=== PATIENT | male | born 1940 | race African-American/Black ===

== ENCOUNTER 2020-01-09 09:21 | Inpatient (IN) | payer OTHER ==
[2020-01-09 09:47] VITALS: BMI 22.8
--- NOTE | 2020-01-09 10:33 | PDOC ---
History of Present Illness - General Chief Complaint: Altered Mental Status Stated Complaint: AMS Time Seen by Provider: 01/09/20 10:15 History Source: Patient, EMS, Family Exam Limitations: Clinical Condition (disorientation) - History of Present Illness Initial Comments: 01/09/20 10:30 79M PMH MM, HTN, gluacoma BIBEMS for altered mental status after being found by PD wandering the street. Patient believes he is still in [place]. Denies recent illness, chest pain, sob. Unreliable historian. Collateral obtained from son - pt frequently visits [place] and was driving back home ([place]), ended up in [place]. Pt had called at 3am but did not believe it was 3am and was confused. No prior hx of altered mental status. No hx etoh, drug abuse. pmd [facility] Past History - Medical History Allergies/Adverse Reactions: Allergies Allergy/AdvReac Type Severity Reaction Status Date / Time No Known Allergies Allergy Verified 01/09/20 09:38 Home Medications: Ambulatory Orders Unobtainable 01/09/20 COPD: No HTN: Yes - Psycho-Social/Smoking History Smoking History: Never smoked - Substance Abuse Hx (Audit-C & DAST Scrn) How often the patient has a drink containing alcohol: Never Score: In Men: 4 or > Positive; In Women: 3 or > Positive: 0 Screen Result (Pos requires Nsg. Audit-10AR): Negative Review of Systems - Review of Systems Able to Perform ROS?: No Comments:: 01/09/20 17:55 Limited 2/2 AMS Denies f/c, cp/sob *Physical Exam - Vital Signs Last Vital Signs Temp Pulse Resp BP Pulse Ox 97.7 F 79 20 151/75 99 01/09/20 09:38 01/09/20 09:38 01/09/20 09:38 01/09/20 09:38 01/09/20 09:38 - Physical Exam 01/09/20 17:55 GEN: NAD, comfortable. AAOx2 to person and date; believes he is in [place] despite frequent re-orientation HEENT: NC/AT, EOMI, PERRL. No facial asymmetry. Normal voice. Supple neck w/ FROM. CV: S1/S2, RRR, no m/r/g LUNG: CTAB, no wheezes, crackles, rales, rhonchi. GI: Soft, ndnt, +BS, no guarding, no rebound MSK: No obvious deformities of all extremities. SKIN: Warm, dry, no rashes appreciated. PSYCH: Limited insight, disoriented, cooperative. Speaking fluently. NEURO: Moving all extremities ED Treatment Course - LABORATORY CBC & Chemistry Diagram: 01/10/20 06:34 01/10/20 06:34 - ADDITIONAL ORDERS Additional order review: Laboratory Results 01/09/20 09:43 POC Glucometer 107 01/09/20 09:43 POC Glucometer 107 Medical Decision Making - Medical Decision Making 01/09/20 17:55 79M w/ MM BIBEMS for AMS. Found on wandering by PD. Was on his way to [place] from [place]. Believes he is in [place] still. AMS w/u, labs, urine, CT Head Admit 01/09/20 15:03 labs reviewed CTX for UTI CT head negative elevated trop to 0.33 EKG 10:53 HR 63 intervals wnl, sinus. PACs, no TWIs, isolated submm HUSSEIN V2. dw Dr. Webber; trend trops 01/09/20 15:40 endorsed / admitted Discharge - Discharge Information Problems reviewed: Yes Clinical Impression/Diagnosis: UTI (urinary tract infection), AMS (altered mental status) Condition: Stable - Admission Yes - Follow up/Referral - Patient Discharge Instructions - Post Discharge Activity
[2020-01-09 10:42] LABS: HEMATOCRIT 38.4 % (35.4-49); HEMOGLOBIN 13.1 GM/dL (11.7-16.9); LYMPH % 19.6 % (8-40); MCH 33.2 pg (25.7-33.7); MEAN CELL VOLUME 97.6 fl (80-96); MONO % 15.5 % (3.8-10.2); NEUT % 62.9 % (42.8-82.8); PLATELET COUNT 130 K/MM3 (134-434); RBC 3.94 M/mm3 (4.00-5.60); RDW 13.8 % (11.9-15.9); VENOUS BASE EXCESS 0.3 mmol/L (-2-2); VENOUS O2 SATURATION 56.7 % (70-80); VENOUS PCO2 50.7 mmHg (38-52); VENOUS PH 7.342 (7.310-7.410); WHITE BLOOD COUNT 3.9 K/mm3 (4.0-10.0)
[2020-01-09 11:18] LABS: ALBUMIN 3.4 g/dl (3.4-5.0); BILIRUBIN,TOTAL 0.6 mg/dL (0.2-1); BLOOD UREA NITROGEN 14.5 mg/dL (7-18); POTASSIUM 3.6 mmol/L (3.5-5.1); TOT PROT 7.2 g/dl (6.4-8.2)
[2020-01-09 11:36] LABS: COCAINE, UR NEGATIVE ng/ml (CUTOFF=300); OPIATES, URI NEGATIVE ng/ml (CUTOFF=300); PHENCYCLIDINE,URINE NEGATIVE ng/ml (CUTOFF=25); URINE AMPHETAMINES NEGATIVE ng/ml (CUTOFF=500); URINE BARBITURATES NEGATIVE ng/ml (CUTOFF=200); URINE BENZODIAZEPINES NEGATIVE ng/ml (CUTOFF=200)
[2020-01-09 11:42] LABS: METHADONE, UR NEGATIVE ng/ml (CUTOFF=300)
[2020-01-09 11:54] LABS: CALCIUM 8.3 mg/dL (8.5-10.1)
[2020-01-09 12:31] LABS: EPI CELLS 3 /uL (0-25.1); HYALINE CASTS 2 /uL (0-3.1); PH,URINE 6.5 (5.0-8.0); URINE APPEARANCE TURBID; URINE BACTERIA >9,000 /uL (0-1359); URINE BILIRUBIN NEGATIVE (NEGATIVE); URINE COLOR YELLOW; URINE GLUCOSE (UA) NEGATIVE (NEGATIVE); URINE KETONE NEGATIVE (NEGATIVE); URINE LEUK ESTERASE 3+ (NEGATIVE); URINE NITRITE NEGATIVE (NEGATIVE); URINE PROTEIN 2+ (NEGATIVE); URINE RBC 54 /uL (0-23.9); URINE WBC 4127 /uL (0-25.8)
[2020-01-09] MEDS ORDERED: CEFTRIAXONE 1 GM in DEXTROSE 5%-WATER - 50 ML IVPB ONE (12:58)
[2020-01-09] MEDS ORDERED: CEFTRIAXONE 1 GM/50 ML BAG ONE (13:02)
--- NOTE | 2020-01-09 14:21 | PDOC ---
Documentation entered by Mindy Go SCRIBE, acting as scribe for Félix Cintron MD. Félix Cintron MD: This documentation has been prepared by the scribe, Mindy Go SCRIBE, under my direction and personally reviewed by me in its entirety. I confirm that the documentation accurately reflects all work, treatment, procedures, and medical decision making performed by me. Attending Attestation - Resident Resident Name: Colin Che - ED Attending Attestation I have performed the following: I have examined & evaluated the patient, The case was reviewed & discussed with the resident, I agree w/resident's findings & plan, Exceptions are as noted - HPI HPI: 01/09/20 10:15 Patient is an 79 year old male with a significant past medical history of multiple myeloma, who presents to the ED, IJEOMA, with altered mental status since an unspecified amount of time. Per EMS, police found patient walking in and out of his car and assumed he was intoxicated so they called EMS. Patient believes he is currently in [place] and was rambling about his car and driving to [place]. Police were able to tract down patient's son who is now at bedside. Per patient's son, patient has no history of mental illness, drug use, or alcohol ad diction but that lately patient has been drinking more than usual. Son also commented on the fact that patient has a history of hording and recent pressured speech appearance where patient does not make any sense. Patient denies: any other related symptoms. Allergies: NKDA - Physicial Exam PE: 01/09/20 10:36 GENERAL: The patient is awake, alert, oriented x 1, Nontoxic - in no acute distress. HEAD: Normocephalic, atraumatic. EYES: extraocular movements intact, sclera anicteric, conjunctiva clear. ENT: Normal voice, Moist mucous membranes. NECK: Normal range of motion, supple LUNGS: Breath sounds equal, clear to auscultation bilaterally. No wheezes, no rhonchi, no rales. HEART: Regular rate and rhythm, normal S1 and S2 without murmur, rub or gallop. ABDOMEN: Soft, nontender, No guarding, no rebound. No CVA tenderness EXTREMITIES: Normal range of motion, no edema. NEUROLOGICAL: No facial assymetry, pressured speech, moving all4 extremities spontaneously and symmetrically PSYCH: pressured speech SKIN: Warm, Dry, normal turgor, - Medical Decision Making 01/09/20 10:40 will look for organic disease, metabolic derangement, bran mass if neg paddy consider psych consultation 01/09/20 14:21 UA conssitent with UTI trop elevated to .33, no signs of MN on ekg will admit for further management of AMS/UTI Heart Score/ECG Review - ECG Impressions Comment:: 01/09/20 14:29 Twelve-lead EKG was performed and reviewed by me. There is normal sinus rhythm with a normal rate. Rate of 63 The axis is normal. Q waves in the inferior leads, Q waves in the anterior leads No prior EKG for comparison Discharge - Discharge Information Problems reviewed: Yes Clinical Impression/Diagnosis: UTI (urinary tract infection) Qualifiers: Urinary tract infection type: site unspecified Hematuria presence: with hematuria Qualified Code(s): N39.0 - Urinary tract infection, site not specified ; R31.9 - Hematuria, unspecified AMS (altered mental status) Qualifiers: Altered mental status type: unspecified Qualified Code(s): R41.82 - Altered mental status, unspecified Condition: Guarded - Follow up/Referral - Patient Discharge Instructions - Post Discharge Activity
[2020-01-09] MEDS ORDERED: ASPIRIN 81 MG CHEWABLE TABLETS PO ONE (14:22)
[2020-01-09] MEDS ORDERED: ASPIRIN 81 MG CHEWABLE TABLETS ONE (14:35)
--- NOTE | 2020-01-09 15:42 | HP ---
CHIEF COMPLAINT: AMS PCP: [facility] HISTORY OF PRESENT ILLNESS: 79 yo m w/ PMH HTN, Glaucoma who was BIBEMS after being found by PD wandering the streets. Patient A&O x2 history is limited and was acquired from the patient's son, a nurse. Patient was fully functional and able to do all ADLs until this AM. Patient regularly drives back and forth from [place] and was on his way to his home in [place] and ended up in [place]. Patient is unsure of how he ended up here and believes he is in [place]. Patient's son endorses some mild episodes of hyperactivity and pressured speech in the past but states that the patient has never been altered. In the ED, CT head in WNL, labs WNL, afebrile. UA positive for UTI. Utox negative. Patient found to have elevated troponins. Cardio contacted, no acute interventions. will trend trop. On evaluation, patient is A&O x2. He is aware of his name, the date and the president, but states that he is in his mother's living room in [place]. After minor reorientation, patient states that he knows he is in [place] and does not know why he thought he was in [place]. He is able to recall talking to his son and states that his son told him he was in [place]. Recent Travel: see HPI PAST MEDICAL HISTORY: see HPI PAST SURGICAL HISTORY: see HPI Social History: unable to obtain secondary to AMS Allergies No Known Allergies Allergy (Verified 01/09/20 09:38) HOME MEDICATIONS: Home Medications Medication Instructions Recorded Unobtainable 01/09/20 REVIEW OF SYSTEMS negative except for HPI PHYSICAL EXAMINATION Vital Signs - 24 hr 01/09/20 01/09/20 01/09/20 09:38 10:30 12:40 Temperature 97.7 F Pulse Rate 79 Pulse Rate [ 73 63 Left Apical] Respiratory 20 18 20 Rate Blood Pressure 151/75 Blood Pressure 166/83 121/63 [Right Arm] O2 Sat by Pulse 99 100 100 Oximetry (%) 01/09/20 12:52 Temperature Pulse Rate Pulse Rate [ Left Apical] Respiratory Rate Blood Pressure Blood Pressure [Right Arm] O2 Sat by Pulse 998 H Oximetry (%) GENERAL: Patient asleep, difficult to arouse, but conversant. HEAD: Normal with no signs of trauma. EYES: Pupils equal, round and reactive to light, extraocular movements intact, sclera anicteric, conjunctiva clear. No lid lag. LUNGS: Breath sounds equal, clear to auscultation bilaterally. No wheezes, and no crackles. No accessory muscle use. HEART: Regular rate and rhythm, normal S1 and S2 without murmur, rub or gallop. ABDOMEN: Soft, nontender, not distended, normoactive bowel sounds, no guarding, no rebound, no masses. No hepatomegaly or splenomegaly. Strong smelling urine noted LOWER EXTREMITIES: 2+ pulses, warm, well-perfused. No calf tenderness. No peripheral edema. NEUROLOGICAL: Cranial nerves II-X intact. Normal speech. PSYCHIATRIC: Cooperative. Patient keeps his eyes closed. Patient has circular speech and tangential thought processes. Easily redirectable and answers questions appropriately. SKIN: Warm, dry, normal turgor, no rashes or lesions noted, normal capillary refill. Laboratory Results - last 24 hr 01/09/20 01/09/20 01/09/20 09:32 09:32 09:32 WBC 3.9 L RBC 3.94 L Hgb 13.1 Hct 38.4 MCV 97.6 H MCH 33.2 MCHC 34.0 RDW 13.8 Plt Count 130 L MPV 8.0 Absolute Neuts (auto) 2.5 Neutrophils % 62.9 Lymphocytes % 19.6 Monocytes % 15.5 H Eosinophils % 1.0 Basophils % 1.0 Nucleated RBC % 0 VBG pH POC VBG pCO2 POC VBG pO2 VBG HCO3 VBG O2 Sat (Sascha) VBG Base Excess Sodium 144 Potassium 3.6 Chloride 110 H Carbon Dioxide 32 Anion Gap 2 L BUN 14.5 Creatinine 1.0 Est GFR (CKD-EPI)AfAm 82.02 Est GFR (CKD-EPI)NonAf 70.77 POC Glucometer Random Glucose 110 H Lactic Acid Calcium 8.3 L Total Bilirubin 0.6 AST 20 ALT 27 Alkaline Phosphatase 65 Ammonia 28.70 Creatine Kinase 222 Creatine Kinase Index 1.5 CK-MB (CK-2) 3.5 Troponin I 0.33 H Total Protein 7.2 Albumin 3.4 TSH 1.63 Urine Color Urine Appearance Urine pH Ur Specific Mckenney Urine Protein Urine Glucose (UA) Urine Ketones Urine Blood Urine Nitrite Urine Bilirubin Urine Urobilinogen Ur Leukocyte Esterase Urine WBC (Auto) Urine RBC (Auto) Urine Casts (Auto) U Epithel Cells (Auto) Urine Bacteria (Auto) Opiates Screen Methadone Screen Barbiturate Screen Phencyclidine Screen Ur Amphetamines Screen MDMA (Ecstasy) Screen Benzodiazepines Screen Cocaine Screen U Marijuana (THC) Screen Blood Type Antibody Screen 01/09/20 01/09/20 01/09/20 09:32 09:32 09:32 WBC RBC Hgb Hct MCV MCH MCHC RDW Plt Count MPV Absolute Neuts (auto) Neutrophils % Lymphocytes % Monocytes % Eosinophils % Basophils % Nucleated RBC % VBG pH 7.342 POC VBG pCO2 50.7 POC VBG pO2 31.8 VBG HCO3 26.9 VBG O2 Sat (Sascha) 56.7 L VBG Base Excess 0.3 Sodium Potassium Chloride Carbon Dioxide Anion Gap BUN Creatinine Est GFR (CKD-EPI)AfAm Est GFR (CKD-EPI)NonAf POC Glucometer Random Glucose Lactic Acid 0.9 Calcium Total Bilirubin AST ALT Alkaline Phosphatase Ammonia Creatine Kinase Creatine Kinase Index CK-MB (CK-2) Troponin I Total Protein Albumin TSH Urine Color Urine Appearance Urine pH Ur Specific Mckenney Urine Protein Urine Glucose (UA) Urine Ketones Urine Blood Urine Nitrite Urine Bilirubin Urine Urobilinogen Ur Leukocyte Esterase Urine WBC (Auto) Urine RBC (Auto) Urine Casts (Auto) U Epithel Cells (Auto) Urine Bacteria (Auto) Opiates Screen Methadone Screen Barbiturate Screen Phencyclidine Screen Ur Amphetamines Screen MDMA (Ecstasy) Screen Benzodiazepines Screen Cocaine Screen U Marijuana (THC) Screen Blood Type O POSITIVE Antibody Screen Negative 01/09/20 01/09/20 01/09/20 09:43 10:00 10:00 WBC RBC Hgb Hct MCV MCH MCHC RDW Plt Count MPV Absolute Neuts (auto) Neutrophils % Lymphocytes % Monocytes % Eosinophils % Basophils % Nucleated RBC % VBG pH POC VBG pCO2 POC VBG pO2 VBG HCO3 VBG O2 Sat (Sascha) VBG Base Excess Sodium Potassium Chloride Carbon Dioxide Anion Gap BUN Creatinine Est GFR (CKD-EPI)AfAm Est GFR (CKD-EPI)NonAf POC Glucometer 107 Random Glucose Lactic Acid Calcium Total Bilirubin AST ALT Alkaline Phosphatase Ammonia Creatine Kinase Creatine Kinase Index CK-MB (CK-2) Troponin I Total Protein Albumin TSH Urine Color Yellow Urine Appearance Turbid Urine pH 6.5 Ur Specific Mckenney 1.017 Urine Protein 2+ H Urine Glucose (UA) Negative Urine Ketones Negative Urine Blood Trace Urine Nitrite Negative Urine Bilirubin Negative Urine Urobilinogen 1.0 Ur Leukocyte Esterase 3+ H Urine WBC (Auto) 4127 Urine RBC (Auto) 54 Urine Casts (Auto) 2 U Epithel Cells (Auto) 3 Urine Bacteria (Auto) >9,000 Opiates Screen Negative Methadone Screen Negative Barbiturate Screen Negative Phencyclidine Screen Negative Ur Amphetamines Screen Negative MDMA (Ecstasy) Screen Negative Benzodiazepines Screen Negative Cocaine Screen Negative U Marijuana (THC) Screen Negative Blood Type Antibody Screen ASSESSMENT/PLAN: 79 yo m w/ PMH HTN, Glaucoma who was BIBEMS after being found by PD wandering the streets. Found to have AMS, troponemia and a UTI and is admitted for treatment. #AMS likely 2/2 UTI; underlying psych cause not ruled out -Fluids; will be cautious given age -s/p ceftriaxone in ED, will continue -will wait to see if ABX improve mentation before psych consult #Troponemia; unlikely ACS, but must rule out -elevted in ED, will trend -cardio consulted by ED: Dr. Webber -sub millimeter ST elevation in V1 only; unlikely to be any acute ischemia -monitor on tele Family Medical History Family History: Unable to Obtain (Patient altered) Visit type - Medication Review Med list reviewed for High Risk Meds patients 65 and older: Yes - Emergency Visit Emergency Visit: Yes ED Registration Date: 01/09/20 Care time: The patient presented to the Emergency Department on the above date and was hospitalized for further evaluation of their emergent condition. - New Patient This patient is new to me today: Yes Date on this admission: 01/09/20 - Critical Care Critical Care patient: No
[2020-01-09] MEDS ORDERED: SODIUM CHLORIDE 1,000 ML IV SCH (16:30)
[2020-01-10 06:59] LABS: BASO % 0.2 % (0-2.0); EOS % 0.5 % (0-4.5); HEMATOCRIT 37.9 % (35.4-49); HEMOGLOBIN 12.8 GM/dL (11.7-16.9); LYMPH % 7.4 % (8-40); MCH 32.4 pg (25.7-33.7); MCHC 33.8 g/dl (32.0-35.9); MEAN CELL VOLUME 95.7 fl (80-96); MONO % 9.4 % (3.8-10.2); NEUT % 82.5 % (42.8-82.8); PLATELET COUNT 125 K/MM3 (134-434); RBC 3.96 M/mm3 (4.00-5.60); RDW 13.4 % (11.9-15.9); WHITE BLOOD COUNT 7.9 K/mm3 (4.0-10.0)
[2020-01-10 07:32] LABS: BILIRUBIN,TOTAL 0.7 mg/dL (0.2-1); BLOOD UREA NITROGEN 15.6 mg/dL (7-18); CALCIUM 8.3 mg/dL (8.5-10.1); CREATININE 0.8 mg/dL (0.55-1.3); PHOSPHOROUS 2.5 mg/dL (2.5-4.9); POTASSIUM 3.6 mmol/L (3.5-5.1); TOT PROT 6.7 g/dl (6.4-8.2)
--- NOTE | 2020-01-10 07:58 | PN ---
Teaching Attending Note Name of Resident: Faye Acevedo ATTENDING PHYSICIAN STATEMENT I saw and evaluated the patient. I reviewed the resident's note and discussed the case with the resident. I agree with the resident's findings and plan as documented. SUBJECTIVE: Remained afebrile overnight OBJECTIVE: Vital Signs Temperature 97.7 F 01/09/20 09:38 Pulse Rate 105 H 01/10/20 05:56 Respiratory Rate 24 H 01/10/20 05:56 Blood Pressure 132/75 01/10/20 05:56 O2 Sat by Pulse Oximetry (%) 96 01/10/20 05:56 General: Elderly man, comfortable, not in distress HEENT mucous membranes moist, no anemia, no jaundice, PERRLA, no nystagmus Neck: No JVD, supple, no bruit, thyroid palpably normal, normal carotid pulsations. Chest: Nontender, clear to auscultation bilaterally CVS: S1-S2 regular no murmur/gallop/rub Abdomen: Nondistended, soft, bowel sounds present. Extremities: No edema., No Calf tenderness, pulses present MEDICAL APPLIANCE [employer]KER: Labs: CBC, BMP 01/10/20 06:34 01/10/20 06:34 Troponin I: .33 and 0.28 Urine: WBC 4100, culture is pending COVID-19 PCR: Negative Chest x-ray: No acute ST-T changes EKG: Heart rate 63 variable configuration of P wave no acute ST-T changes no previous EKG available for comparison. CT head: No acute changes Chest x-ray: No infiltrates Active Medications Enoxaparin Sodium (Lovenox -) 40 mg SQ DAILY [facility] Ceftriaxone Sodium 1 gm/ (Dextrose) 50 mls @ 100 mls/hr IVPB DAILY ONE Stop: 01/10/20 10:29 Sodium Chloride (Normal Saline -) 1,000 mls @ 42 mls/hr IV ASDIR PATRICIA Stop: 01/10/20 16:19 Last Admin: 01/09/20 16:53 Dose: 42 mls/hr Documented by: ASSESSMENT AND PLAN: 79 years old man a [place] resident of [place] there he lives with his , son is a RN lives in [place], independent still able to drive to [place], to take care of his property, as per son he has history of multiple myeloma in the past now in remission for past 15 years, hypertension, follow-up [facility], yesterday brought in by [place] close patient was found sleeping in his car engine running, patient was very confused and disoriented so brought in by numerous police to ED for evaluation, overnight patient remained confused and disoriented work-up shows UTI, today morning patient is alert oriented able to recall events surrounding this episode as per patient he was coming back from [place] drives 2 days continuously, somehow patient lost his to [place], as per patient he was on [place] call his friend to get directions somehow landed in [place] and he falls to sleep because he did not sleep for past 2 days, denies any chest pain, shortness of breath, palpitation admits dysuria and difficulty in urination for past few months no complaint of fever, cough, altered sensation noticed, no recent change in exercise tolerance PND or orthopnea CBC BMP are normal mild elevation of troponin I, EKG shows possible wandering pacemaker as 3 different configuration of people with heart rate of 63, evaluated by cardiology consult recommended echo and inpatient stress test Impression: 1.Altered mental status can be toxic metabolic anticoagulopathy due to UTI/transient global amnesia: Most likely due to UTI "toxic metabolic encephalopathy with lack of sleep significantly improved we will continue IV hydration, ceftriaxone for UTI, follo w-up urine culture. No additional neurological work-up at present 2. UTI: Possibility of BPH follow-up bladder ultrasound and KUB ultrasound. Continue ceftriaxone 1 g every 24 hours follow-up urine culture Tylenol as needed for fever and chills. 3. Elevated troponin I: No acute ST-T changes, no symptoms will follow cardiology recommendations and follow-up echo and nuclear stress test follow-up Follow-up TSH, lipid level, hemoglobin A1c. 4. Dementia work-up as an outpatient 5. History of multiple myeloma in remission 6. Hypertension resume home medications 7. Mild thrombocytopenia most likely due to multiple myeloma Plan of care discussed with the resident agrees with the plan and evaluation. Please discuss with family before discharge plan.
--- NOTE | 2020-01-10 08:08 | CON.CARD ---
Consult Consult Specialty:: cardio - History of Present Illness Chief Complaint: confusion History of Present Illness: 79 yo male here with confusion. Pt drives back and forth btw home in [place] and home in . was found by police in [place] [address], not fully oriented, confused as to his wheareabouts (thought he was in [place]). normal temp BP mildly elevated sat normal mild thrombocytopenia trop 0.33-->0.28 otherwise unrevealing, incl normal lactate currently: a bit tangential but repeatedly denies at any time recently feeling CP, sob, palpitations, or dizzy/presyncope states he did not sleep in 2-3 days when driving up feels in [place] currently denies CAD or any other CV history Meds: ? - Smoking History Smoking history: Never smoked Home Medications - Allergies Allergies/Adverse Reactions: Allergies Allergy/AdvReac Type Severity Reaction Status Date / Time No Known Allergies Allergy Verified 01/09/20 09:38 - Home Medications Home Medications: Ambulatory Orders Unobtainable 01/09/20 Family Medical History Family History: Denies (no known cmp) Review of Systems - Review of Systems Constitutional: denies: Chills, Fever Eyes: denies: Eye Pain HENT: denies: Nasal Congestion Neck: denies: Stiffness Cardiovascular: denies: Palpitations Respiratory: denies: Orthopnea, PND Gastrointestinal: denies: Diarrhea, Rectal Bleeding Genitourinary: denies: Burning, Hematuria Musculoskeletal: denies: Muscle Pain Integumentary: denies: Rash Neurological: denies: Numbness, Seizure, Syncope Endocrine: denies: Excessive Sweating Hematology/Lymphatic: denies: Excessive Bleeding Vital Signs: Vital Signs Temperature 97.7 F 01/09/20 09:38 Pulse Rate 105 H 01/10/20 05:56 Respiratory Rate 24 H 01/10/20 05:56 Blood Pressure 132/75 01/10/20 05:56 O2 Sat by Pulse Oximetry (%) 96 01/10/20 05:56 Constitutional: Yes: Well Nourished, No Distress Eyes: No: Sclera Icterus HENT: No: Nasal Congestion Neck: No: Decreased ROM Respiratory: Yes: CTA Bilaterally. No: Accessory Muscle Use, Rales, Wheezes Gastrointestinal: Yes: Normal Bowel Sounds. No: Distention, Hepatomegaly, Palpable Mass, Tenderness Cardiovascular: Yes: Regular Rate and Rhythm JVD: No Carotid Bruit: No PMI: Non-Displaced Heart Sounds: Yes: S1, S2. No: Gallop Murmur: Yes: Diastolic Murmur (loud early decr murmur LUSB c/w AI). No: Systolic Murmur Musculoskeletal: Yes: Other (No kyphosis) Extremities: No: Cold, Cool, Cyanosis Edema: No Peripheral Pulses: 2+ Left Carotid, 2+ Right Carotid, 2+ Left Doralis Pedis, 2+ Right Dorsalis Pedis Integumentary: No: Jaundice Neurological: Yes: Alert, Oriented (x3) Psychiatric: No: Agitated - Other Data Labs, Other Data: CBC, BMP 01/10/20 06:34 01/10/20 06:34 Troponin, BNP 01/09/20 01/09/20 09:32 15:30 Troponin I 0.33 H 0.28 H Troponin, BNP 01/09/20 01/09/20 09:32 15:30 Troponin I 0.33 H 0.28 H Assessment/Plan ECG: NSR with APC; + LVH; old IWMI and old AWMI picture--no old. no ST-T abnormality CXR: no chf, effusions CT head: no acute pathology mental confusion: -? etiology -suspect UTI in elderly -no signs of ACS to be causing this atypical presentation elev troponin: -indeterminate range trop, flat trend x 2, not consistent with acute coronary syndrome/plaque rupture -no targeted therapies indicated in this setting -rec pharm MPI for risk stratification (in AM) -rec tele monitoring x 24 hrs AI murmur, LVH on EKG: -given pt not a local resident and f/u compliance is uncertain, rec echo while here to assess AI severity (typical murmur on exam) and LV size/fxn in light of ekg HTN: -bp mildly elevated, ? prior history/med list (pt unreliable to provide at the moment) -observe trend, no meds for now thrombocytopenia: -mild, no prior baseline -per hospitalist
[2020-01-10] MEDS ORDERED: CEFTRIAXONE 1 GM/50 ML BAG ONE (09:29)
[2020-01-10] MEDS ORDERED: ENOXAPARIN NA (PORCINE) 40 MG/0.4 ML DISP.SYRIN SQ ONE (09:29)
[2020-01-10] MEDS: ENOXAPARIN NA (PORCINE) 40 MG/0.4 ML DISP.SYRIN SQ SCH (09:30)
[2020-01-10] MEDS ORDERED: ENOXAPARIN NA (PORCINE) 30 MG/0.3 ML DISP.SYRIN SQ SCH (10:00)
[2020-01-10] MEDS ORDERED: CEFTRIAXONE 1 GM in DEXTROSE 5%-WATER - 50 ML IVPB ONE (10:00)
--- NOTE | 2020-01-10 12:42 | PN ---
Physical Exam: SUBJECTIVE: Patient seen and examined. Pt stated he was returning to his home in [place], [place], from [place]. When he arrived, he had a desire to go visit the city ([place] However, he ended up in [place] in a confused state. He was disoriented to place. Pt subsequently brought in by EMS. Pt complained of urinary hesitancy and has to strain to urinate. Denies urgency or frequency, fevers, chills, changes in taste, changes in smell, shortness of breath, c/p. OBJECTIVE: Vital Signs Period Temp Pulse Resp BP Sys/Worley Pulse Ox Last 24 Hr 99 F 53-105 19-24 116-162/53-99 96-100 GENERAL: Thin, elderly. AAOx3. Tearful. In mild distress. Lying comfortably on bed. HEENT: NCAT, EOMI, moist mucous membranes. CARDIAC: RRR, s1, s2 present. No murmurs. RESPIRATORY: CTA b/l. No wheezes. Abdomen: Soft, nondistended, nontender to palpation. Normoactive bowel sounds. No suprapubic tenderness. MSK: No CVAT EXTREMITIES: warm, well-perfused. No edema. SKIN: warm, dry. CBC, BMP 01/10/20 06:34 01/10/20 06:34 Active Medications Enoxaparin Sodium (Lovenox -) 40 mg SQ DAILY [facility] Last Admin: 01/10/20 09:30 Dose: 40 mg Documented by: Tamsulosin HCl (Flomax -) 0.4 mg PO DAILY@0830 [facility] CXR; 01/09/2020 A single view of the chest reveals a weak inspiration with else and large heart, tortuous aorta and prominent payton. The patient is rotated to the right. There is some prominent markings in the right mid and lower lung field but no sign of a true infiltrate or failure. The angles are sharp. The bones and soft tissues are intact. CT head w/o contrast; 01/09/2020 No acute bleed or mass or fracture. No CT evidence of acute infarct ASSESSMENT/PLAN: 79 year old M with PMH HTN, multiple myeloma and glaucoma presented to the ED wi th AMS. Pt currently admitted for workup for AMS secondary to UTI vs. transient global amnesia. AMS, likely due to UTI vs. transient global amnesia -UA with 2+ protein, trace blood, 3+ Leuk est, WBC >4000 - Cultures -f/u Ucx -c/w ceftriaxone (started 01/08) today is day 2. - c/w IVF -c/w acetaminophen PRN for fevers -Dementia workup as outpatient. May need MRI if symptoms persist. UTI, possibly due to BPH -f/u ultrasound bladder, ultrasound pelvic/bladder - f/u Ucx - c/w tamsulosin 0.4mg qD Elevated troponin - EKG w/o acute ST changes - Cardiology consulted. Recommended echo and nuclear stress test. - flattened trend, not consistent w/ ACS - c/w tele monitoring HTN - c/w home antihypertensives, pending release of medication list from [place] Thrombocytopenia, likely due to h/o multiple myeloma -continue to monitor Plt FEN -no standing fluids - replete lytes as needed - sodium controlled diet Ppx DVT: lovenox Dispo: admit to telemetry Visit type - Emergency Visit Emergency Visit: Yes ED Registration Date: 01/09/20 Care time: The patient presented to the Emergency Department on the above date and was hospitalized for further evaluation of their emergent condition. - New Patient This patient is new to me today: Yes Date on this admission: 01/10/20 - Critical Care Critical Care patient: No - Medication Review Med list reviewed for High Risk Meds patients 65 and older: Yes ATTENDING PHYSICIAN STATEMENT I saw and evaluated the patient. I reviewed the resident's note and discussed the case with the resident. I agree with the resident's findings and plan as documented. SUBJECTIVE: OBJECTIVE: ASSESSMENT AND PLAN:
[2020-01-10] MEDS ORDERED: METOPROLOL TARTRATE 25 MG TABLET (FP) PO ONE (14:43)
[2020-01-11 07:23] LABS: BASO % 0.8 % (0-2.0); HEMATOCRIT 41.2 % (35.4-49); HEMOGLOBIN 13.7 GM/dL (11.7-16.9); LYMPH % 19.7 % (8-40); MCH 31.9 pg (25.7-33.7); MCHC 33.3 g/dl (32.0-35.9); MEAN PLT VOLUME 8.7 fl (7.5-11.1); NEUT % 67.5 % (42.8-82.8); PLATELET COUNT 133 K/MM3 (134-434); RBC 4.29 M/mm3 (4.00-5.60); RDW 13.8 % (11.9-15.9); WHITE BLOOD COUNT 5.7 K/mm3 (4.0-10.0)
[2020-01-11 07:54] LABS: BILIRUBIN,TOTAL 0.9 mg/dL (0.2-1); BLOOD UREA NITROGEN 15.8 mg/dL (7-18); CALCIUM 8.5 mg/dL (8.5-10.1); CREATININE 0.8 mg/dL (0.55-1.3); POTASSIUM 3.5 mmol/L (3.5-5.1); TOT PROT 6.9 g/dl (6.4-8.2)
[2020-01-11] MEDS ORDERED: TAMSULOSIN HCL 0.4 MG CAP PO SCH (08:30)
[2020-01-11] MEDS ORDERED: REGADENOSON 0.4 MG/5 ML PRE-FILLED SYRINGE IVPUSH ONE (09:00)
[2020-01-11] MEDS ORDERED: cefTRIAXone SODIUM 1 GM VIAL ONE (10:11)
[2020-01-11] MEDS ORDERED: DEXTROSE 5%-WATER - 50 ML IVPB ONE (10:11)
--- NOTE | 2020-01-11 11:04 | EKG ---
Test Reason : Blood Pressure : / mmHG Vent. Rate : 063 BPM Atrial Rate : 063 BPM P-R Int : 186 ms QRS Dur : 082 ms QT Int : 418 ms P-R-T Axes : 056 -18 019 degrees QTc Int : 427 ms SINUS RHYTHM WITH PREMATURE ATRIAL COMPLEXES INFERIOR INFARCT , AGE UNDETERMINED ANTERIOR INFARCT , AGE UNDETERMINED POOR R WAVE PROGRESSION ABNORMAL ECG NO PREVIOUS ECGS AVAILABLE Confirmed by RADHA JORDAN MD ([id number]) on 01/11/2020 11:04:17 AM Referred By: Confirmed By:RADHA JORDAN MD
[2020-01-11] MEDS: CEFTRIAXONE 1 GM in DEXTROSE 5%-WATER - 50 ML IVPB SCH (12:01)
[2020-01-11] MEDS: ENOXAPARIN NA (PORCINE) 40 MG/0.4 ML DISP.SYRIN SQ SCH (12:01)
--- NOTE | 2020-01-11 12:10 | ECHO ---
Name: CHALINO HAIR Exam:Adult Echocardiogram Study Date: 01/11/2020 09:33 AM Age: 79 yrs Reason For Study: Abnormal ECG, LVH, AI murmur Height: 74 in Weight: 178 lb BSA: 2.1 m2 MMode/2D Measurements & Calculations RVDd: 3.8 cm Ao root diam: 3.3 cm IVSd: 1.4 cm LA dimension: 4.1 cm LVIDd: 4.7 cm ACS: 2.3 cm LVIDs: 3.2 cm LVPWd: 1.4 cm EDV(Camilo): 99.9 ml LVOT diam: 2.6 cm ESV(Camilo): 40.6 ml LAV (MOD-bp): 106.0 ml TAPSE: 2.8 cm RV S Dipak: 9.3 cm/sec Doppler Measurements & Calculations MV E max dipak: 47.9 cm/sec Ao V2 max: 202.4 cm/sec MV A max dipak: 50.3 cm/sec Ao max P.4 mmHg MV E/A: 0.95 Ao V2 mean: 130.5 cm/sec MV dec time: 0.26 sec Ao mean P.8 mmHg Ao V2 VTI: 34.5 cm MIGUEL(I,D): 4.5 cm2 AI P1/2t: 442.5 msec MIGUEL(V,D): 4.2 cm2 AI max dipak: 501.2 cm/sec LV V1 max P.9 mmHg AI max P.2 mmHg LV V1 mean P.4 mmHg AI dec slope: 331.8 cm/sec2 LV V1 max: 157.7 cm/sec LV V1 mean: 98.3 cm/sec LV V1 VTI: 28.7 cm MR max dipak: 540.5 cm/sec SV(LVOT): 155.8 ml MR max P.8 mmHg TR max dipak: 202.1 cm/sec PA V2 max: 125.2 cm/sec TR max P.5 mmHg PA max P.3 mmHg PA acc slope: 714.1 cm/sec2 PA acc time: 0.11 sec PI end-d dipak: 97.7 cm/sec Med Peak E' Dipak: 3.8 cm/sec Med E/e': 12.6 Lat Peak E' Dipak: 6.2 cm/sec Lat E/e': 7.7 PA pr(Accel): 28.3 mmHg Pulm Sys Dipak: 61.2 cm/sec Pulm Worley Dipak: 50.8 cm/sec Pulm S/D: 1.2 Tech Comments Possible Ao Valve leaflet fenestration. Procedure A complete two-dimensional transthoracic echocardiogram was performed (2D, M-mode, Doppler and color flow Doppler). Left Ventricle The left ventricle is normal in size. There is mild concentric left ventricular hypertrophy. Left pricilla tricular systolic function is normal. Ejection Fraction = 60-65%. No regional wall motion abnormalities noted. Right Ventricle The right ventricle is normal size. The right ventricular systolic function is normal. Atria The left atrium is mildly dilated. Right atrial size is normal. Mitral Valve There is mild mitral valve thickening. Redundant mitral valve leaflet. There is mild to moderate mitr al regurgitation. Tricuspid Valve The tricuspid valve is normal in structure and function. There is mild tricuspid regurgitation. Right ventricular systolic pressure is normal. Aortic Valve There is mild aortic sclerosis.;. Moderate aortic regurgitation. Pulmonic Valve The pulmonic valve is not well visualized. Great Vessels The aortic root is normal size. Mildly dilated ascending thoracic aorta (3.9 cm). Pericardium/Pleura Small pericardial effusion (<1cm). Interpretation Summary The left ventricle is normal in size. There is mild concentric left ventricular hypertrophy. Left ventricular systolic function is normal. No regional wall motion abnormalities noted. Ejection Fraction = 60-65%. The right ventricular systolic function is normal. The left atrium is mildly dilated. Right atrial size is normal. There is mild mitral valve thickening. Redundant mitral valve leaflet There is mild to moderate mitral regurgitation. There is mild tricuspid regurgitation. Right ventricular systolic pressure is normal. There is mild aortic sclerosis. Moderate aortic regurgitation. Mildly dilated ascending thoracic aorta (3.9 cm) Small pericardial effusion (<1cm) Corey Yusuf MD 01/11/2020 12:09 PM
--- NOTE | 2020-01-11 13:52 | PN ---
Progress Note (short form) - Note Progress Note: s: no cp sob palps dizzy Current Medications Generic Name Dose Route Start Last Admin Trade Name Destiny PRN Reason Stop Dose Admin Enoxaparin Sodium 40 mg 01/10/20 10:00 01/11/20 12:01 Lovenox - SQ 40 mg DAILY [facility] Administration Ceftriaxone Sodium 1 gm/ 50 mls @ 200 mls/hr 01/11/20 10:00 01/11/20 12:01 Dextrose IVPB 200 mls/hr DAILY [facility] Administration Protocol Tamsulosin HCl 0.4 mg 01/11/20 08:30 01/11/20 12:01 Flomax - PO 0.4 mg DAILY@0830 [facility] Administration Vital Signs Period Temp Pulse Resp BP Sys/Worley Pulse Ox Last 24 Hr 97.7 F-98.6 F 69-83 18-20 132-172/74-96 94-100 Constitutional: Yes: Well Nourished, No Distress Eyes: No: Sclera Icterus HENT: No: Nasal Congestion Neck: No: Decreased ROM Respiratory: Yes: CTA Bilaterally. No: Accessory Muscle Use, Rales, Wheezes Gastrointestinal: Yes: Normal Bowel Sounds. No: Distention, Hepatomegaly, Palpable Mass, Tenderness Cardiovascular: Yes: Regular Rate and Rhythm JVD: No Carotid Bruit: No PMI: Non-Displaced Heart Sounds: Yes: S1, S2. No: Gallop Murmur: Yes: Diastolic Murmur (loud early decr murmur LUSB c/w AI). No: Systolic Murmur Musculoskeletal: Yes: Other (No kyphosis) Extremities: No: Cold, Cool, Cyanosis Edema: No Peripheral Pulses: 2+ Left Carotid, 2+ Right Carotid, 2+ Left Doralis Pedis, 2+ Right Dorsalis Pedis Integumentary: No: Jaundice Neurological: Yes: Alert, Oriented (x3) Psychiatric: No: Agitated CBC, BMP 01/11/20 06:15 01/11/20 06:15 Assessment/Plan ECG: NSR with APC; + LVH; old IWMI and old AWMI picture--no old. no ST-T abnormality CXR: no chf, effusions CT head: no acute pathology tele: sr, artifact mental confusion: -? etiology -suspect UTI in elderly -no signs of ACS to be causing this atypical presentation elev troponin: -indeterminate range trop, flat trend x 2, not consistent with acute coronary syndrome/plaque rupture -no targeted therapies indicated in this setting -rec pharm MPI for risk stratification (pending) -tele benign AI murmur, LVH on EKG: -given pt not a local resident and f/u compliance is uncertain, rec echo while here to assess AI severity (typical murmur on exam) and LV size/fxn in light of ekg HTN: -bp mildly elevated, ? prior history/med list (pt unreliable to provide at the moment) -observe trend, no meds for now thrombocytopenia: -mild, no prior baseline -per hospitalist
--- NOTE | 2020-01-11 14:39 | PN ---
Physical Exam: SUBJECTIVE: Patient seen and examined. No acute events overnight. OBJECTIVE: Vital Signs Period Temp Pulse Resp BP Sys/Worley Pulse Ox Last 24 Hr 97.7 F-98.6 F 69-83 18-20 132-172/74-96 94-100 GENERAL: Thin, elderly. AAOx3. Lying comfortably on bed. No acute distress. HEENT: NCAT, EOMI, moist mucous membranes. CARDIAC: RRR, s1, s2 present. No murmurs. RESPIRATORY: CTA b/l. No wheezes. Abdomen: Soft, nondistended, nontender to palpation. Normoactive bowel sounds. No suprapubic tenderness. MSK: No CVAT EXTREMITIES: warm, well-perfused. No edema. SKIN: warm, dry. Laboratory Last Values WBC 5.7 K/mm3 (4.0-10.0) 01/11/20 06:15 RBC 4.29 M/mm3 (4.00-5.60) 01/11/20 06:15 Hgb 13.7 GM/dL (11.7-16.9) 01/11/20 06:15 Hct 41.2 % (35.4-49) 01/11/20 06:15 MCV 96.0 fl (80-96) 01/11/20 06:15 MCH 31.9 pg (25.7-33.7) 01/11/20 06:15 MCHC 33.3 g/dl (32.0-35.9) 01/11/20 06:15 RDW 13.8 % (11.9-15.9) 01/11/20 06:15 Plt Count 133 K/MM3 (134-434) L 01/11/20 06:15 MPV 8.7 fl (7.5-11.1) 01/11/20 06:15 Absolute Neuts (auto) 3.8 K/mm3 (1.5-8.0) 01/11/20 06:15 Neutrophils % 67.5 % (42.8-82.8) 01/11/20 06:15 Lymphocytes % 19.7 % (8-40) D 01/11/20 06:15 Monocytes % 10.0 % (3.8-10.2) 01/11/20 06:15 Eosinophils % 2.0 % (0-4.5) D 01/11/20 06:15 Basophils % 0.8 % (0-2.0) D 01/11/20 06:15 Nucleated RBC % 0 % (0-0) 01/11/20 06:15 VBG pH 7.342 (7.310-7.410) 01/09/20 09:32 POC VBG pCO2 50.7 mmHg (38-52) 01/09/20 09:32 POC VBG pO2 31.8 mmHg (28-48) 01/09/20 09:32 VBG HCO3 26.9 mmol/L (23-29) 01/09/20 09:32 VBG O2 Sat (Sascha) 56.7 % (70-80) L 01/09/20 09:32 VBG Base Excess 0.3 mmol/L (-2-2) 01/09/20 09:32 Sodium 141 mmol/L (136-145) 01/11/20 06:15 Potassium 3.5 mmol/L (3.5-5.1) 01/11/20 06:15 Chloride 108 mmol/L (98-107) H 01/11/20 06:15 Carbon Dioxide 28 mmol/L (21-32) 01/11/20 06:15 Anion Gap 5 MMOL/L (8-16) L 01/11/20 06:15 BUN 15.8 mg/dL (7-18) 01/11/20 06:15 Creatinine 0.8 mg/dL (0.55-1.3) 01/11/20 06:15 Est GFR (CKD-EPI)AfAm 97.78 01/11/20 06:15 Est GFR (CKD-EPI)NonAf 84.37 01/11/20 06:15 POC Glucometer 107 UNITS (80-120) 01/09/20 09:43 Random Glucose 89 mg/dL (74-106) 01/11/20 06:15 Hemoglobin A1c % 5.7 % (4.2-6.3) 01/11/20 06:15 Lactic Acid 0.9 mmol/L (0.4-2.0) 01/09/20 09:32 Calcium 8.5 mg/dL (8.5-10.1) 01/11/20 06:15 Phosphorus 2.5 mg/dL (2.5-4.9) 01/10/20 06:34 Magnesium 2.0 mg/dL (1.8-2.4) 01/10/20 06:34 Total Bilirubin 0.9 mg/dL (0.2-1) 01/11/20 06:15 AST 24 U/L (15-37) 01/11/20 06:15 ALT 33 U/L (13-61) 01/11/20 06:15 Alkaline Phosphatase 74 U/L (45-117) 01/11/20 06:15 Ammonia 28.70 umol/L (11-32) 01/09/20 09:32 Creatine Kinase 222 U/L (26-308) 01/09/20 09:32 Creatine Kinase Index 1.5 % (0.0-5.0) 01/09/20 09:32 CK-MB (CK-2) 3.5 ng/mL (0.5-3.6) 01/09/20 09:32 Troponin I 0.28 ng/ml (0.00-0.05) H 01/09/20 15:30 Total Protein 6.9 g/dl (6.4-8.2) 01/11/20 06:15 Albumin 3.0 g/dl (3.4-5.0) L 01/11/20 06:15 Triglycerides 50 mg/dL (0-150) 01/11/20 06:15 Cholesterol 160 mg/dL (50-200) 01/11/20 06:15 Total LDL Cholesterol 91 mg/dL (5-100) 01/11/20 06:15 HDL Cholesterol 63 mg/dL (40-60) H 01/11/20 06:15 TSH 1.42 uIU/ml (0.358-3.74) D 01/11/20 06:15 Urine Color Yellow 01/09/20 10:00 Urine Appearance Turbid 01/09/20 10:00 Urine pH 6.5 (5.0-8.0) 01/09/20 10:00 Ur Specific [place] 1.017 (1.010-1.035) 01/09/20 10:00 Urine Protein 2+ (NEGATIVE) H 01/09/20 10:00 Urine Glucose (UA) Negative (NEGATIVE) 01/09/20 10:00 Urine Ketones Negative (NEGATIVE) 01/09/20 10:00 Urine Blood Trace (NEGATIVE) 01/09/20 10:00 Urine Nitrite Negative (NEGATIVE) 01/09/20 10:00 Urine Bilirubin Negative (NEGATIVE) 01/09/20 10:00 Urine Urobilinogen 1.0 mg/dL (0.2-1.0) 01/09/20 10:00 Ur Leukocyte Esterase 3+ (NEGATIVE) H 01/09/20 10:00 Urine WBC (Auto) 4127 /uL (0-25.8) 01/09/20 10:00 Urine RBC (Auto) 54 /uL (0-23.9) 01/09/20 10:00 Urine Casts (Auto) 2 /uL (0-3.1) 01/09/20 10:00 U Epithel Cells (Auto) 3 /uL (0-25.1) 01/09/20 10:00 Urine Bacteria (Auto) >9,000 /uL (0-1359) 01/09/20 10:00 Opiates Screen Negative ng/ml (MSABMN=710) 01/09/20 10:00 Methadone Screen Negative ng/ml (WVLSUR=484) 01/09/20 10:00 Barbiturate Screen Negative ng/ml (UTSZDI=785) 01/09/20 10:00 Phencyclidine Screen Negative ng/ml (CUTOFF=25) 01/09/20 10:00 Ur Amphetamines Screen Negative ng/ml (MCWCCQ=766) 01/09/20 10:00 MDMA (Ecstasy) Screen Negative ng/ml (RJMEWD=414) 01/09/20 10:00 Benzodiazepines Screen Negative ng/ml (NKQQYV=567) 01/09/20 10:00 Cocaine Screen Negative ng/ml (KMHTJJ=392) 01/09/20 10:00 U Marijuana (THC) Screen Negative ng/ml (CUTOFF=50) 01/09/20 10:00 COVID-19 (NICOLAS) Not detected (Not Detected) 01/09/20 11:00 Blood Type O POSITIVE 01/09/20 09:32 Antibody Screen Negative 01/09/20 09:32 Active Medications Artificial Tears (Artificial Tears) 1 drop OU BID PRN PRN Reason: DRY EYES Enoxaparin Sodium (Lovenox -) 40 mg SQ DAILY [facility] Last Admin: 01/11/20 12:01 Dose: 40 mg Documented by: Ceftriaxone Sodium 1 gm/ (Dextrose) 50 mls @ 200 mls/hr IVPB DAILY [facility]; Protocol Last Admin: 01/11/20 12:01 Dose: 200 mls/hr Documented by: Tamsulosin HCl (Flomax -) 0.8 mg PO DAILY@0830 [facility] CXR; 01/09/2020 A single view of the chest reveals a weak inspiration with else and large heart, tortuous aorta and prominent payton. The patient is rotated to the right. There is some prominent markings in the right mid and lower lung field but no sign of a true infiltrate or failure. The angles are sharp. The bones and soft tissues are intact. CT head w/o contrast; 01/09/2020 No acute bleed or mass or fracture. No CT evidence of acute infarct Bladder US; 01/10/2020 Prostatic hypertrophy with large postvoid residual. ASSESSMENT/PLAN: 79 year old M with PMH HTN, multiple myeloma and glaucoma presented to the ED with AMS. Pt currently admitted for workup for AMS secondary to UTI vs. transient global amnesia. AMS, likely due to UTI vs. transient global amnesia -UA with 2+ protein, trace blood, 3+ Leuk est, WBC >4000 - Cultures -Ucx negative -c/w ceftriaxone (started 01/08) today is day 3. - c/w IVF -c/w acetaminophen PRN for fevers -Dementia workup as outpatient. May need MRI if symptoms persist. UTI, possibly due to BPH -Bladder US as above. - Ucx negative - c/w tamsulosin 0.4mg qD -c/w abx Elevated troponin - EKG w/o significant ST changes - Cardiology consulted. Recommended echo and nuclear stress test. -Echo 01/10 LVEF 60-65%, mild ventricular hypertrophy. Mild-mod MR, mild TR, moderate AR, mildly dilated ascending aorta, small pericardial effusion - flattened trend, not consistent w/ ACS - c/w tele monitoring HTN - c/w home antihypertensives, pending release of medication list from [place] Thrombocytopenia, likely due to h/o multiple myeloma -continue to monitor Plt FEN -no standing fluids - replete lytes as needed - NPO after midnight Ppx DVT: lovenox Dispo: admit to telemetry Visit type - Emergency Visit Emergency Visit: Yes ED Registration Date: 01/09/20 Care time: The patient presented to the Emergency Department on the above date and was hospitalized for further evaluation of their emergent condition. - New Patient This patient is new to me today: No - Critical Care Critical Care patient: No - Medication Review Med list reviewed for High Risk Meds patients 65 and older: Yes ATTENDING PHYSICIAN STATEMENT I saw and evaluated the patient. I reviewed the resident's note and discussed the case with the resident. I agree with the resident's findings and plan as documented. SUBJECTIVE: OBJECTIVE: ASSESSMENT AND PLAN:
--- NOTE | 2020-01-11 16:18 | PN ---
Teaching Attending Note Name of Resident: Faye Acevedo ATTENDING PHYSICIAN STATEMENT I saw and evaluated the patient. I reviewed the resident's note and discussed the case with the resident. I agree with the resident's findings and plan as documented. SUBJECTIVE: Patient is comfortable with NAd OBJECTIVE: Vital Signs Temperature 97.9 F 01/11/20 10:00 Pulse Rate 81 01/11/20 10:00 Respiratory Rate 18 01/11/20 10:00 Blood Pressure 149/96 01/11/20 10:00 O2 Sat by Pulse Oximetry (%) 96 01/11/20 10:00 PE: per resident's note CBCD WBC 5.7 K/mm3 (4.0-10.0) 01/11/20 06:15 RBC 4.29 M/mm3 (4.00-5.60) 01/11/20 06:15 Hgb 13.7 GM/dL (11.7-16.9) 01/11/20 06:15 Hct 41.2 % (35.4-49) 01/11/20 06:15 MCV 96.0 fl (80-96) 01/11/20 06:15 MCHC 33.3 g/dl (32.0-35.9) 01/11/20 06:15 RDW 13.8 % (11.9-15.9) 01/11/20 06:15 Plt Count 133 K/MM3 (134-434) L 01/11/20 06:15 MPV 8.7 fl (7.5-11.1) 01/11/20 06:15 CMP Sodium 141 mmol/L (136-145) 01/11/20 06:15 Potassium 3.5 mmol/L (3.5-5.1) 01/11/20 06:15 Chloride 108 mmol/L (98-107) H 01/11/20 06:15 Carbon Dioxide 28 mmol/L (21-32) 01/11/20 06:15 Anion Gap 5 MMOL/L (8-16) L 01/11/20 06:15 BUN 15.8 mg/dL (7-18) 01/11/20 06:15 Creatinine 0.8 mg/dL (0.55-1.3) 01/11/20 06:15 Random Glucose 89 mg/dL (74-106) 01/11/20 06:15 Calcium 8.5 mg/dL (8.5-10.1) 01/11/20 06:15 Total Bilirubin 0.9 mg/dL (0.2-1) 01/11/20 06:15 AST 24 U/L (15-37) 01/11/20 06:15 ALT 33 U/L (13-61) 01/11/20 06:15 Alkaline Phosphatase 74 U/L (45-117) 01/11/20 06:15 Total Protein 6.9 g/dl (6.4-8.2) 01/11/20 06:15 Albumin 3.0 g/dl (3.4-5.0) L 01/11/20 06:15 CARDIAC ENZYMES Creatine Kinase 222 U/L (26-308) 01/09/20 09:32 Troponin I 0.28 ng/ml (0.00-0.05) H 01/09/20 15:30 Current Medications Generic Name Dose Route Start Last Admin Trade Name Freq PRN Reason Stop Dose Admin Enoxaparin Sodium 40 mg 01/10/20 10:00 01/11/20 12:01 Lovenox - SQ 40 mg DAILY [facility] Administration Ceftriaxone Sodium 1 gm/ 50 mls @ 200 mls/hr 01/11/20 10:00 01/11/20 12:01 Dextrose IVPB 200 mls/hr DAILY [facility] Administration Protocol Tamsulosin HCl 0.8 mg 01/12/20 08:30 Flomax - PO DAILY@0830 [facility] Home Medications Medication Instructions Recorded Cephalexin [Keflex] 500 mg PO Q12H #6 capsule 01/10/20 Tamsulosin HCl [Flomax -] 0.4 mg PO DAILY@0830 #30 cap.er.24h 01/10/20 Microbiology 01/10/20 11:45 Urine - Urine Clean Catch Urine Culture - Final NO GROWTH OBTAINED ASSESSMENT AND PLAN: 79 years old man a [place] resident of [place] there he lives with his , son is a RN lives in [place], independent still able to drive to [place], to take care of his property, as per son he has history of multiple myeloma in the past now in remission for past 15 years, hypertension, follow-up [facility], yesterday brought in by [employer] close patient was found sleeping in his car engine running, patient was very confused and disoriented so brought in by numerous police to ED for evaluation, overnight patient remained confused and disoriented work-up shows UTI, today morning patient is alert oriented able to recall events surrounding this episode as per patient he was coming back from [place] 2 days continuously, somehow patient lost his to [place], as per patient he was [place] [address] call his friend to get directions somehow landed in [place] and he falls to sleep because he did not sleep for past 2 days, denies any chest pain, shortness of breath, palpitation admits dysuria and difficulty in urination for past few months no complaint of fever, cough, altered sensation noticed, no recent change in exercise tolerance PND or orthopnea CBC BMP are normal mild elevation of troponin I, EKG shows possible wandering pacemaker as 3 different configuration of people with heart rate of 63, evaluated by cardiology consult recommended echo and inpatient stress test #Altered mental status can be toxic metabolic anticoagulopathy due to UTI/transient global amnesia:improving , most likely due to UTI on Rocephin IV continue #acute UTI: continue ceftriaxone . # Elevated troponin I:no ST elevation, indeterminate range trop,a sper cardio ,flat trend x 2, not consistent with acute coronary syndrome/plaque rupture # Dementia work-up as an outpatient # History of multiple myeloma in remission # Hypertension resume home medications # Mild thrombocytopenia most likely due to multiple myeloma DVT px: lovenox if stable dc the patient in am
[2020-01-11] MEDS ORDERED: ARTIFICIAL TEARS (POLYVINYL ALCOHOL) OPTH DROPS OU PRN (16:30)
[2020-01-12 07:28] LABS: BLOOD UREA NITROGEN 14.3 mg/dL (7-18); CALCIUM 8.3 mg/dL (8.5-10.1); CREATININE 0.9 mg/dL (0.55-1.3); POTASSIUM 3.6 mmol/L (3.5-5.1)
[2020-01-12] MEDS: TAMSULOSIN HCL 0.4 MG CAP PO SCH (08:48)
[2020-01-12] MEDS ORDERED: DEXTROSE 5%-WATER - 50 ML IVPB ONE (09:13)
[2020-01-12] MEDS ORDERED: cefTRIAXone SODIUM 1 GM VIAL ONE (09:13)
[2020-01-12] MEDS: CEFTRIAXONE 1 GM in DEXTROSE 5%-WATER - 50 ML IVPB SCH (09:32)
[2020-01-12] MEDS: ENOXAPARIN NA (PORCINE) 40 MG/0.4 ML DISP.SYRIN SQ SCH (09:32)
[2020-01-12 09:57] LABS: EPI CELLS 1 /uL (0-25.1); HYALINE CASTS 1 /uL (0-3.1); PH,URINE 5.5 (5.0-8.0); URINE APPEARANCE CLOUDY; URINE BACTERIA 10 /uL (0-1359); URINE BILIRUBIN NEGATIVE (NEGATIVE); URINE COLOR YELLOW; URINE GLUCOSE (UA) NEGATIVE (NEGATIVE); URINE KETONE NEGATIVE (NEGATIVE); URINE LEUK ESTERASE 2+ (NEGATIVE); URINE NITRITE NEGATIVE (NEGATIVE); URINE PROTEIN 1+ (NEGATIVE); URINE RBC 71 /uL (0-23.9); URINE UROBILINOGEN 0.2 mg/dL (0.2-1.0); URINE WBC 1312 /uL (0-25.8)
--- NOTE | 2020-01-12 12:09 | PN ---
Progress Note (short form) - Note Progress Note: s: no cp sob palps dizzy Current Medications Generic Name Dose Route Start Last Admin Trade Name Freq PRN Reason Stop Dose Admin Artificial Tears 1 drop 01/11/20 16:30 01/11/20 17:50 Artificial Tears OU 1 drop BID PRN Administration DRY EYES Enoxaparin Sodium 40 mg 01/10/20 10:00 01/12/20 09:32 Lovenox - SQ 40 mg DAILY PATRICIA Administration Ceftriaxone Sodium 1 gm/ 50 mls @ 200 mls/hr 01/11/20 10:00 01/12/20 09:32 Dextrose IVPB 200 mls/hr DAILY PATRICIA Administration Protocol Tamsulosin HCl 0.8 mg 01/12/20 08:30 01/12/20 08:48 Flomax - PO 0.8 mg DAILY@0830 PATRICIA Administration Vital Signs Period Temp Pulse Resp BP Sys/Worley Pulse Ox Last 24 Hr 97.5 F-98.9 F 72-80 18-18 125-146/72-93 97-97 Constitutional: Yes: Well Nourished, No Distress Eyes: No: Sclera Icterus HENT: No: Nasal Congestion Neck: No: Decreased ROM Respiratory: Yes: CTA Bilaterally. No: Accessory Muscle Use, Rales, Wheezes Gastrointestinal: Yes: Normal Bowel Sounds. No: Distention, Hepatomegaly, Palpable Mass, Tenderness Cardiovascular: Yes: Regular Rate and Rhythm JVD: No Carotid Bruit: No PMI: Non-Displaced Heart Sounds: Yes: S1, S2. No: Gallop Murmur: Yes: Diastolic Murmur (loud early decr murmur LUSB c/w AI). No: Systolic Murmur Musculoskeletal: Yes: Other (No kyphosis) Extremities: No: Cold, Cool, Cyanosis Edema: No Peripheral Pulses: 2+ Left Carotid, 2+ Right Carotid, 2+ Left Doralis Pedis, 2+ Right Dorsalis Pedis Integumentary: No: Jaundice Neurological: Yes: Alert, Oriented (x3) Psychiatric: No: Agitated Assessment/Plan ECG: NSR with APC; + LVH; old IWMI and old AWMI picture--no old. no ST-T abnormality echo 12/2019 mild conc LVH, nl LV function, RV nl, La mildly dilated, redundant MV leaflet, mild to mod MR, mild TR, RVSP nl, mild ao sclerosis, mod AR, mildly dilated ascending aorta 3.9 cm, sm pericardial effusion <1 cm CXR: no chf, effusions CT head: no acute pathology tele: sr, artifact mental confusion: -? etiology -suspect UTI in elderly -no signs of ACS to be causing this atypical presentation elev troponin: -indeterminate range trop, flat trend x 2, not consistent with acute coronary syndrome/plaque rupture -no targeted therapies indicated in this setting - pharm MPI for risk stratification pending -tele benign AI murmur, LVH on EKG: -mod AR on echo - outpatient follow up HTN: -observe trend off meds thrombocytopenia: -mild, no prior baseline -per hospitalist
[2020-01-12] MEDS ORDERED: REGADENOSON 0.4 MG/5 ML PRE-FILLED SYRINGE IVPUSH ONE (12:30)
--- NOTE | 2020-01-12 18:22 | PN ---
Physical Exam: SUBJECTIVE: Patient seen and examined. No acute events. Complains of decreased urination. Encouraged increase PO water intake. Denies fevers, chills. OBJECTIVE: Vital Signs Period Temp Pulse Resp BP Sys/Worley Pulse Ox Last 24 Hr 98 F-98.9 F 72-94 18-18 125-146/72-93 97-98 GENERAL: Thin, elderly. AAOx3. Lying comfortably on bed. No acute distress. HEENT: NCAT, EOMI, moist mucous membranes. CARDIAC: RRR, s1, s2 present. No murmurs. RESPIRATORY: CTA b/l. No wheezes. Abdomen: Soft, nondistended, nontender to palpation. Normoactive bowel sounds. No suprapubic tenderness. MSK: No CVAT EXTREMITIES: warm, well-perfused. No edema. SKIN: warm, dry. CBC, BMP 01/11/20 06:15 01/12/20 05:45 Active Medications Artificial Tears (Artificial Tears) 1 drop OU BID PRN PRN Reason: DRY EYES Last Admin: 01/11/20 17:50 Dose: 1 drop Documented by: Enoxaparin Sodium (Lovenox -) 40 mg SQ DAILY [facility] Last Admin: 01/12/20 09:32 Dose: 40 mg Documented by: Ceftriaxone Sodium 1 gm/ (Dextrose) 50 mls @ 200 mls/hr IVPB DAILY [facility]; Protocol Last Admin: 01/12/20 09:32 Dose: 200 mls/hr Documented by: Tamsulosin HCl (Flomax -) 0.8 mg PO DAILY@0830 [facility] Last Admin: 01/12/20 08:48 Dose: 0.8 mg Documented by: CXR; 01/09/2020 A single view of the chest reveals a weak inspiration with else and large heart, tortuous aorta and prominent payton. The patient is rotated to the right. There is some prominent markings in the right mid and lower lung field but no sign of a true infiltrate or failure. The angles are sharp. The bones and soft tissues are intact. CT head w/o contrast; 01/09/2020 No acute bleed or mass or fracture. No CT evidence of acute infarct Bladder US; 01/10/2020 Prostatic hypertrophy with large postvoid residual. ASSESSMENT/PLAN: 79 year old M with PMH HTN, multiple myeloma and glaucoma presented to the ED with AMS. Pt currently admitted for workup for AMS secondary to UTI vs. transient global amnesia. AMS, likely due to UTI vs. transient global amnesia -UA with 2+ protein, trace blood, 3+ Leuk est, WBC >4000 - Cultures -Ucx negative -c/w ceftriaxone (started 01/08) today is day 3. - c/w IVF -c/w acetaminophen PRN for fevers -Dementia workup as outpatient. May need MRI if symptoms persist. UTI, possibly due to BPH - Bladder US as above. - Ucx negative - c/w tamsulosin 0.8 mg qD - c/w abx - post-void US 370 mL, decision made to insert flores Elevated troponin - EKG w/o significant ST changes - Cardiology consulted. Recommended echo and nuclear stress test. -Echo 01/10 LVEF 60-65%, mild ventricular hypertrophy. Mild-mod MR, mild TR, moderate AR, mildly dilated ascending aorta, small pericardial effusion -Nuclear stress test found medium to large size, moderate severity stress i nduced ischemia in inferior wall. -Discussed case w/ cardio. Catheter placement not emergent. Will monitor overnight and discuss possible transfer. - flattened trend, not consistent w/ ACS - c/w tele monitoring HTN - c/w home antihypertensives, pending [facility] Thrombocytopenia, likely due to h/o multiple myeloma -continue to monitor Plt FEN -no standing fluids - replete lytes as needed - sodium controlled diet. Ppx DVT: lovenox Informed and updated pt's status with son, Tree. Son stated pt's mental status has improved considerably compared to presentation on admission. Stated that pt has been slowly getting more forgetful over the past year. Dispo: continue to monitor. Visit type - Emergency Visit Emergency Visit: Yes ED Registration Date: 01/09/20 Care time: The patient presented to the Emergency Department on the above date and was hospitalized for further evaluation of their emergent condition. - New Patient This patient is new to me today: No - Critical Care Critical Care patient: No - Medication Review Med list reviewed for High Risk Meds patients 65 and older: Yes ATTENDING PHYSICIAN STATEMENT I saw and evaluated the patient. I reviewed the resident's note and discussed the case with the resident. I agree with the resident's findings and plan as documented. SUBJECTIVE: OBJECTIVE: ASSESSMENT AND PLAN:
--- NOTE | 2020-01-12 18:35 | PN ---
Teaching Attending Note Name of Resident: Mary Carmen Etienne ATTENDING PHYSICIAN STATEMENT I saw and evaluated the patient. I reviewed the resident's note and discussed the case with the resident. I agree with the resident's findings and plan as documented. SUBJECTIVE: no cp , no fever or chills, no OSB . has dysuria, and lower abd discomfort /pain especially with urination OBJECTIVE: NAD, awake, hard of hearing. oriented x 3. CV: RRR, possible 2/6 murmur in LUSB Lungs: CTAB Abd: soft, ND, TTP in suprapubic area, and bladder is palpated below the umbilicus Ext : No edema or erythema neuro : EOMI, no facial droop. nl facial sensation . strength 5/5 in upper and lower extremities proximally and distally. biceps and knee jerk reflexes 1+ b/l. ASSESSMENT AND PLAN: 79 y/o man with h/o MM, BPH, and HTn who presented with AMS. 1- AMS, now seems to be better, probably at base line. team to call son to confirm . suspect lack of sleep and possible UTI contributing neuro exam is normal. CT reviewed. 2- Pyuria , possible UTI. urine cx is negative but significant pyuria might reflect UTI Vs other pathology ( bladder cancer for example, interstitial nephritis, .....) - POst void bladder scan with 370 cc of PVR - place flores. - cont flomax 0.8 mg - consult uro. 3- h/o HTN : resume losartanand norvasc. hold HCTYZ given retention 4- Elevated trop. ? NSTEMI . stress test with mod size induced ischemia. start asa will d/w card regarding need for cath resume ARB echo reviewed. AR and other valvular abn 5- dispo : to be determined
[2020-01-13 07:14] LABS: HEMATOCRIT 35.6 % (35.4-49); HEMOGLOBIN 12.1 GM/dL (11.7-16.9); MCHC 33.9 g/dl (32.0-35.9); MEAN CELL VOLUME 94.4 fl (80-96); MEAN PLT VOLUME 8.9 fl (7.5-11.1); PLATELET COUNT 117 K/MM3 (134-434); RBC 3.77 M/mm3 (4.00-5.60); RDW 13.4 % (11.9-15.9); WHITE BLOOD COUNT 5.9 K/mm3 (4.0-10.0)
[2020-01-13 07:40] LABS: BLOOD UREA NITROGEN 14.2 mg/dL (7-18); CALCIUM 8.1 mg/dL (8.5-10.1); CREATININE 0.8 mg/dL (0.55-1.3); POTASSIUM 3.7 mmol/L (3.5-5.1)
[2020-01-13] MEDS ORDERED: DEXTROSE 5%-WATER - 50 ML IVPB ONE (08:26)
[2020-01-13] MEDS ORDERED: cefTRIAXone SODIUM 1 GM VIAL ONE (08:26)
[2020-01-13] MEDS: CEFTRIAXONE 1 GM in DEXTROSE 5%-WATER - 50 ML IVPB SCH (09:14)
[2020-01-13] MEDS: ENOXAPARIN NA (PORCINE) 40 MG/0.4 ML DISP.SYRIN SQ SCH (09:14)
[2020-01-13] MEDS: ASPIRIN COATED 81 MG TABLET.EC PO SCH (09:15)
[2020-01-13] MEDS: TAMSULOSIN HCL 0.4 MG CAP PO SCH (09:15)
[2020-01-13] MEDS: amLODIPine BESYLATE 5 MG TABLET (FP) PO SCH (09:15)
[2020-01-13] MEDS: LOSARTAN POTASSIUM 50 MG TABLET (FP) PO SCH (09:15)
--- NOTE | 2020-01-13 11:59 | PN ---
Progress Note (short form) - Note Progress Note: s: no cp sob palps dizzy nonsmoker Current Medications Generic Name Dose Route Start Last Admin Trade Name Freq PRN Reason Stop Dose Admin Amlodipine Besylate 5 mg 01/13/20 10:00 01/13/20 09:15 Norvasc - PO 5 mg DAILY PATRICIA Administration Artificial Tears 1 drop 01/11/20 16:30 01/11/20 17:50 Artificial Tears OU 1 drop BID PRN Administration DRY EYES Aspirin 81 mg 01/13/20 10:00 01/13/20 09:15 Ecotrin - PO 81 mg DAILY PATRICIA Administration Enoxaparin Sodium 40 mg 01/10/20 10:00 01/13/20 09:14 Lovenox - SQ 40 mg DAILY PATRICIA Administration Ceftriaxone Sodium 1 gm/ 50 mls @ 200 mls/hr 01/11/20 10:00 01/13/20 09:14 Dextrose IVPB 200 mls/hr DAILY PATRICIA Administration Protocol Losartan Potassium 100 mg 01/13/20 10:00 01/13/20 09:15 Cozaar - PO 100 mg DAILY PATRICIA Administration Tamsulosin HCl 0.8 mg 01/12/20 08:30 01/13/20 09:15 Flomax - PO 0.8 mg DAILY@0830 PATRICIA Administration Vital Signs Period Temp Pulse Resp BP Sys/Worley Pulse Ox Last 24 Hr 98 F-99.4 F 67-120 18-18 122-146/82-93 96-99 Constitutional: Yes: Well Nourished, No Distress Eyes: No: Sclera Icterus HENT: No: Nasal Congestion Neck: No: Decreased ROM Respiratory: Yes: CTA Bilaterally. No: Accessory Muscle Use, Rales, Wheezes Gastrointestinal: Yes: Normal Bowel Sounds. No: Distention, Hepatomegaly, Palpable Mass, Tenderness Cardiovascular: Yes: Regular Rate and Rhythm JVD: No Carotid Bruit: No PMI: Non-Displaced Heart Sounds: Yes: S1, S2. No: Gallop Murmur: Yes: Diastolic Murmur (loud early decr murmur LUSB c/w AI). No: Systolic Murmur Musculoskeletal: Yes: Other (No kyphosis) Extremities: No: Cold, Cool, Cyanosis Edema: No Peripheral Pulses: 2+ Left Carotid, 2+ Right Carotid, 2+ Left Doralis Pedis, 2+ Right Dorsalis Pedis Integumentary: No: Jaundice Neurological: Yes: Alert, Oriented (x3) Psychiatric: No: Agitated Assessment/Plan ECG: NSR with APC; + LVH; old IWMI and old AWMI picture--no old. no ST-T abnormality echo 12/2019 mild conc LVH, nl LV function, RV nl, La mildly dilated, redundant MV leaflet, mild to mod MR, mild TR, RVSP nl, mild ao sclerosis, mod AR, mildly dilated ascending aorta 3.9 cm, sm pericardial effusion <1 cm CXR: no chf, effusions CT head: no acute pathology tele: sr, 3-4 beats NSVT mibi 12/2019 medium to lareg size mod severity ischemia in inferior wall, nl LV function mental confusion: -? etiology -suspect UTI in elderly -no signs of ACS to be causing this atypical presentation elev troponin: -indeterminate range trop, flat trend x 2, not consistent with acute coronary syndrome/plaque rupture -no targeted therapies indicated in this setting -mibi shows inferior ischemia. recommended cardiac catheterization, discussed procedure with patient. he would like to discuss with his family, if patient agreeable will arrange transfer to [place] for cath AI murmur, LVH on EKG: -mod AR on echo - outpatient follow up HTN: -observe trend off meds thrombocytopenia: -mild, no prior baseline -per hospitalist NSVT - maintain K>4, Mg >2 - nl LV function - recommend cardiac cath as above
[2020-01-13] MEDS: FINASTERIDE 5 MG TABLET (FP) PO SCH (13:45)
--- NOTE | 2020-01-13 14:43 | CON.GU ---
Consult Consult Specialty:: Referred by:: medicine Reason for Consultation:: urinary retention - History of Present Illness Chief Complaint: urinary retention History of Present Illness: Patient is an 79 year old male admitted with confusion and change of mental status with a UTI. He was found to have enlarged prostate and high post void residual. he has no known history - History Source History Provided By: Patient, Family Member, Medical Record Limitations to Obtaining History: Poor Historian - Smoking History Smoking history: Never smoked Home Medications - Allergies Allergies/Adverse Reactions: Allergies Allergy/AdvReac Type Severity Reaction Status Date / Time No Known Allergies Allergy Verified 01/09/20 09:38 - Home Medications Home Medications: Ambulatory Orders Cephalexin [Keflex] 500 mg PO Q12H #6 capsule 01/10/20 Tamsulosin HCl [Flomax -] 0.4 mg PO DAILY@0830 #30 cap.er.24h 01/10/20 Amlodipine Besylate 5 mg PO DAILY 01/12/20 Aspirin EC 81 mg PO DAILY 01/12/20 Cyanocobalamin 1 mg PO DAILY 01/12/20 Morena-C 1,000 mg Tablet 1,000 mg PO DAILY 01/12/20 Fluticasone Propionate [Flovent Diskus] 2 sprays REP DAILY 01/12/20 Hydrochlorothiazide 25 mg PO DAILY 01/12/20 Loratadine 10 mg PO DAILY 01/12/20 Losartan Potassium 100 mg PO DAILY 01/12/20 Saw [place] 1 cap PO DAILY 01/12/20 Vitamin D - 2,000 mg PO DAILY 01/12/20 Family Medical History Family History: Denies (no known cmp) Review of Systems - Review of Systems Genitourinary: reports: Frequency Physical Exam- Vital Signs: Vital Signs Temperature 97.8 F 01/13/20 14:00 Pulse Rate 118 H 01/13/20 14:00 Respiratory Rate 18 01/13/20 09:00 Blood Pressure 129/74 01/13/20 14:00 O2 Sat by Pulse Oximetry (%) 99 01/13/20 09:00 Renal/: Yes: Flores Present. No: Bladder Distention, CVA Tenderness - Left, CVA Tenderness - Right, Hematuria, Incontinence Labs: CBC, BMP 01/13/20 05:38 01/13/20 05:38 Imaging - Results Cat Scan: Report Reviewed Problem List - Problems (1) BPH associated with nocturia Code(s): N40.1 - BENIGN PROSTATIC HYPERPLASIA WITH LOWER URINARY TRACT SYMP; R35.1 - NOCTURIA (2) Acute retention of urine Assessment/Plan: maintain flores home on flomax and finasteride Dr. Cardenas follow up with my partner Dr. Maykel Muse MD Urologist [facility] [phone] Code(s): R33.8 - OTHER RETENTION OF URINE
[2020-01-13 16:26] LABS: EPI CELLS 28 /uL (0-25.1); HYALINE CASTS 16 /uL (0-3.1); PH,URINE 5.5 (5.0-8.0); URINE APPEARANCE TURBID; URINE BACTERIA 37 /uL (0-1359); URINE BILIRUBIN NEGATIVE (NEGATIVE); URINE COLOR DK YELLOW; URINE GLUCOSE (UA) NEGATIVE (NEGATIVE); URINE KETONE NEGATIVE (NEGATIVE); URINE LEUK ESTERASE 2+ (NEGATIVE); URINE NITRITE NEGATIVE (NEGATIVE); URINE PROTEIN 2+ (NEGATIVE); URINE WBC 322 /uL (0-25.8)
--- NOTE | 2020-01-13 17:05 | PN ---
Teaching Attending Note Name of Resident: Mary Carmen Etienne ATTENDING PHYSICIAN STATEMENT I saw and evaluated the patient. I reviewed the resident's note and discussed the case with the resident. I agree with the resident's findings and plan as documented. SUBJECTIVE: sen around 1 pm. no fever ro chills, denied CP. denied SOb. Abd pain much better in comparison to yesterday OBJECTIVE: NAD, awake, hard of hearing. oriented x 3. CV: RRR, possible 2/6 murmur in LUSB Lungs: CTAB Abd: soft, ND, NT in abd Ext : No edema or erythema ASSESSMENT AND PLAN: 79 y/o man with h/o MM, BPH, and HTn who presented with AMS. 1- s/p Acute metabolic encephalopathy. due to UTI. resolved 2- UTI: cont Abx for total of 7 days given his significant pyuria nad now insertion of flores. cont withkeflex 3- urinary retention : due to enlarged prostate. case d/w uro , cont flores x 1 week to get it removed in uro clinic. referral was made or patietn can follow up with his urologist cont flomax add finasteride 4- h/o HTN: losartan and norvasc. resume HCTZ at dc 4- Elevated trop. ? NSTEMI . patient refused transfer to [facility] for non urgent cath. he will follow up with his own card. d/w Dr. saeed, she agrees with DC dispo : Dc home . he decline any need for help for ambulation
[2020-01-13 17:50] LABS: YEAST NONE SEEN (NEGATIVE)
--- NOTE | 2020-01-13 17:54 | DS ---
Physical Exam: SUBJECTIVE: Patient seen and examined. No acute events overnight. OBJECTIVE: Vital Signs Period Temp Pulse Resp BP Sys/Worley Pulse Ox Last 24 Hr 97.8 F-99.4 F 67-120 18-18 122-146/74-93 96-99 PHYSICAL EXAM GENERAL: Thin, elderly. AAOx3. Lying comfortably on bed. No acute distress. HEENT: NCAT, EOMI, moist mucous membranes. CARDIAC: RRR, s1, s2 present. No murmurs. RESPIRATORY: CTA b/l. No wheezes. Abdomen: Soft, nondistended, nontender to palpation. Normoactive bowel sounds. EXTREMITIES: warm, well-perfused. No edema. SKIN: warm, dry. LABS Laboratory Results - last 24 hr CBC, BMP 01/13/20 05:38 01/13/20 05:38 HOSPITAL COURSE: 79 year old M with PMH HTN, multiple myeloma and glaucoma presented to the ED with AMS. Pt was driving from [place] and was not sleeping for 2 days straight. When he arrived in [place], pt believed he was still in [place]. Pt admitted for AMS due to toxic metabolic encephalopathy secondary to UTI, exacerbated by lack of sleep, resolved. CT head and CXR showed no acute findings. UA was positive for WBC and leukocyte esterase. Bladder US was positive for prostatic hypertrophy and large post-void residual. Pt treated w/ ceftriaxone and flores was placed. A MS improved. During this admission, pt had elevated troponins. Pt had echo and nuclear stress test. Findings significant for medium to large size, moderate severity stress induced ischemia in inferior wall. Cardio consulted. Pt ultimately decided to f/u with his personal assistant production manager Dr. Cruz at [facility]. Pt maintained on flores and is to follow up with his urologist Dr. Muse at [place]. He is hemodynamically stable and medically optimized for discharge home. He is to follow up with his cardiology and urologist for further management. Visit type Date of Admission:01/09/20 Date of Discharge: 01/13/20 Minutes to complete discharge: 36 Discharge Summary Problems reviewed: Yes Reason For Visit: UTI,ELEVATED TROPONIN LEVEL,ALTERED MENTAL STATUS Current Active Problems AMS (altered mental status) (Acute) Acute retention of urine (Acute) BPH associated with nocturia (Acute) UTI (urinary tract infection) (Acute) Condition: Stable - Instructions Diet, Activity, Other Instructions: Your visit: You were admitted to the hospital for change in your mental status. We did imaging of your head and chest. There were no concerning acute changes found in your brain nor were there acute findings in your chest. We also tested your urine. You were found to have a urinary tract infection. You were treated with antibiotics with improvement of your symptoms. We also did imaging of your bladder and prostate for your straining while urinating. You were found to have an enlarged prostate. You were evaluated by a urologist. We inserted a flores catheter and gave you medication to relieve your discomfort while urinating. You will maintain the catheter until you see a urologist. We also evaluated your electrocardiogram and found some chronic changes. You also completed an echocardiogram and nuclear stress test to further evaluate these changes. You were found to have no concerning findings in your echocardiogram. Your nuclear stress test found some exercised-induced strain of your heart. A assistant production manager was consulted (Dr. Malone) and she discussed with you the cardiac catheter procedure. Additional image findings: Imaging of your head showed some chronic changes in your brain. If your symptoms persist, you may need to do an MRI. Medications changes: -Please continue to take Tamsulosin (Flomax) 0.8mg daily. - Please continue to take Finasteride (Proscar) 5 mg daily. -Please continue to take Cephalexin (Keflex) 500 mg every 12 hours for 2 days. You will take your first dose tonight. -Continue to take all your other home medications as prescribed. Follow up: - Please follow-up with your urologist at the [facility] in 1 week. If you do not have one, you may follow up with Dr. Maykel Muse MD Urologist located at [place] on [address] [phone]. Your urinary catheter will need to be removed in 1 week , other hidalgo infection can happen You also need repeat Urinalysis to ensure resolution of urine findings ( lots of white cells ) - Please follow up with your assistant production manager, Dr. Cruz at the [facility]. He will discuss with you further about the cardiac catheter procedure. - Visit with your Primary Care Provider at the [facility] in 2 weeks. If you do not have a primary care provider you may make an appointment with Dr. Cueva at the [facility] located at [address] [place] [address] ([phone]). Additional Instructions: -You are being discharged to your home. -Please return to the Emergency Department if you experience worsening pain, fevers, chills, shortness of breath, or chest pain, or if you experience any worsening, new or concerning symptoms. please stop Saw palmito supplements due to potential side effects please follow up with you primary doctro regarding the low platelet count Referrals: Le Cueva MD [Staff Physician] - 2 Weeks Disposition: HOME - Home Medications Comprehensive Discharge Medication List: Ambulatory Orders Amlodipine Besylate 5 mg PO DAILY 01/12/20 Aspirin EC 81 mg PO DAILY 01/12/20 Cyanocobalamin 1 mg PO DAILY 01/12/20 Morena-C 1,000 mg Tablet 1,000 mg PO DAILY 01/12/20 Fluticasone Propionate [Flovent Diskus] 2 sprays REP DAILY 01/12/20 Hydrochlorothiazide 25 mg PO DAILY 01/12/20 Loratadine 10 mg PO DAILY 01/12/20 Losartan Potassium 100 mg PO DAILY 01/12/20 Vitamin D - 2,000 mg PO DAILY 01/12/20 Cephalexin [Keflex] 500 mg PO BID #4 capsule 01/13/20 Finasteride [Proscar -] 5 mg PO DAILY #30 tablet 01/13/20 Polyvinyl Alcohol [Artificial Tears] 1 drop OU BID PRN drops 01/13/20 Tamsulosin HCl 0.8 mg PO DAILY #30 capsule 01/13/20 This patient is new to me today: No Emergency Visit: Yes ED Registration Date: 01/09/20 Care time: The patient presented to the Emergency Department on the above date and was hospitalized for further evaluation of their emergent condition. Critical Care patient: No - Discharge Referral Referred to [facility] No ATTENDING PHYSICIAN STATEMENT I saw and evaluated the patient. I reviewed the resident's note and discussed the case with the resident. I agree with the resident's findings and plan as documented. SUBJECTIVE: OBJECTIVE: ASSESSMENT AND PLAN:
[2020-01-14] MEDS: ASPIRIN COATED 81 MG TABLET.EC PO SCH (10:19)
[2020-01-14] MEDS: amLODIPine BESYLATE 5 MG TABLET (FP) PO SCH (10:19)
[2020-01-14] MEDS: TAMSULOSIN HCL 0.4 MG CAP PO SCH (10:19)
[2020-01-14] MEDS: FINASTERIDE 5 MG TABLET (FP) PO SCH (10:19)
[2020-01-14] MEDS: LOSARTAN POTASSIUM 50 MG TABLET (FP) PO SCH (10:20)
[2020-01-14] MEDS: ENOXAPARIN NA (PORCINE) 40 MG/0.4 ML DISP.SYRIN SQ SCH (10:20)
[2020-01-14] MEDS: CEFTRIAXONE 1 GM in DEXTROSE 5%-WATER - 50 ML IVPB SCH (10:20)
[2020-01-14 11:38] VITALS: BP 138/92; PULSE 104; TEMP 98.7
--- NOTE | 2020-01-14 11:50 | PN ---
Progress Note (short form) - Note Progress Note: s: no cp sob palps dizzy Current Medications Generic Name Dose Route Start Last Admin Trade Name Freq PRN Reason Stop Dose Admin Amlodipine Besylate 5 mg 01/13/20 10:00 01/14/20 10:19 Norvasc - PO 5 mg DAILY PATRICIA Administration Artificial Tears 1 drop 01/11/20 16:30 01/11/20 17:50 Artificial Tears OU 1 drop BID PRN Administration DRY EYES Aspirin 81 mg 01/13/20 10:00 01/14/20 10:19 Ecotrin - PO 81 mg DAILY PATRICIA Administration Enoxaparin Sodium 40 mg 01/10/20 10:00 01/14/20 10:20 Lovenox - SQ 40 mg DAILY PATRICIA Administration Finasteride 5 mg 01/13/20 13:15 01/14/20 10:19 Proscar - PO 5 mg DAILY PATRICIA Administration Ceftriaxone Sodium 1 gm/ 50 mls @ 200 mls/hr 01/11/20 10:00 01/14/20 10:20 Dextrose IVPB Not Given DAILY PATRICIA Protocol Losartan Potassium 100 mg 01/13/20 10:00 01/14/20 10:20 Cozaar - PO 100 mg DAILY PATRICIA Administration Tamsulosin HCl 0.8 mg 01/12/20 08:30 01/14/20 10:19 Flomax - PO 0.8 mg DAILY@0830 PATRICIA Administration Vital Signs Period Temp Pulse Resp BP Sys/Worley Pulse Ox Last 24 Hr 97.8 F-98.9 F 61-118 20-20 107-138/64-92 95-96 Constitutional: Yes: Well Nourished, No Distress Eyes: No: Sclera Icterus HENT: No: Nasal Congestion Neck: No: Decreased ROM Respiratory: Yes: CTA Bilaterally. No: Accessory Muscle Use, Rales, Wheezes Gastrointestinal: Yes: Normal Bowel Sounds. No: Distention, Hepatomegaly, Palpable Mass, Tenderness Cardiovascular: Yes: Regular Rate and Rhythm JVD: No Carotid Bruit: No PMI: Non-Displaced Heart Sounds: Yes: S1, S2. No: Gallop Murmur: Yes: Diastolic Murmur (loud early decr murmur LUSB c/w AI). No: Systolic Murmur Musculoskeletal: Yes: Other (No kyphosis) Extremities: No: Cold, Cool, Cyanosis Edema: No Peripheral Pulses: 2+ Left Carotid, 2+ Right Carotid, 2+ Left Doralis Pedis, 2+ Right Dorsalis Pedis Integumentary: No: Jaundice Neurological: Yes: Alert, Oriented (x3) Psychiatric: No: Agitated CBC, BMP 01/13/20 05:38 01/13/20 05:38 Assessment/Plan ECG: NSR with APC; + LVH; old IWMI and old AWMI picture--no old. no ST-T abnorma lity echo 12/2019 mild conc LVH, nl LV function, RV nl, La mildly dilated, redundant MV leaflet, mild to mod MR, mild TR, RVSP nl, mild ao sclerosis, mod AR, mildly dilated ascending aorta 3.9 cm, sm pericardial effusion <1 cm CXR: no chf, effusions CT head: no acute pathology tele: sr mibi 12/2019 medium to lareg size mod severity ischemia in inferior wall, nl LV function mental confusion: -? etiology -suspect UTI in elderly -no signs of ACS to be causing this atypical presentation elev troponin: -indeterminate range trop, flat trend x 2, not consistent with acute coronary syndrome/plaque rupture -no targeted therapies indicated in this setting -mibi shows inferior ischemia. recommended cardiac catheterization, discussed procedure with patient but he declines, says he would like to f/u with his doctor in [place]. MIBI showed ischemia in low risk territory, cont med rx for presumed cad. AI murmur, LVH on EKG: -mod AR on echo - outpatient follow up HTN: -observe trend off meds thrombocytopenia: -mild, no prior baseline -per hospitalist NSVT - maintain K>4, Mg >2 - nl LV function
--- NOTE | 2020-01-14 18:34 | PN ---
Teaching Attending Note Name of Resident: Mary Carmen Etienne ATTENDING PHYSICIAN STATEMENT I saw and evaluated the patient. I reviewed the resident's note and discussed the case with the resident. I agree with the resident's findings and plan as documented. SUBJECTIVE: seen at 8 am . no complaints OBJECTIVE: NAD, awake, hard of hearing. CV: RRR Lungs: CTAB Abd: soft, ND, NT in abd Ext : No edema or erythema ASSESSMENT AND PLAN: 79 y/o man with h/o MM, BPH, and HTn who presented with AMS. 1- S/p Acute metabolic encephalopathy. due to UTI. resolved 2- UTI: cont po Abx to complete the course 3- urinary retention: due to enlarged prostate. stressed to the patietn that flores needs to be removed or changed in 1 week cont flomax cont finasteride 4- h/o HTN: losartan and norvasc and HCTZ at home 4- Elevated trop. ? NSTEMI . Abn stress test patient refused transfer to [facility] for non urgent cath. he will follow up with his own card. d/w Dr. saeed, she agrees with DC dispo ptient was discharged yesterday but did not leave.
== END 2020-01-14 11:30 | disposition home or self-care (01) | DRG 725 ==
LOC: JER 09:21 → JERBED 13:35 → J4W 01-10 12:20
PROVIDERS: ADMIT Internal Medicine; ATTEND Internal Medicine
DX: N40.1 Benign prostatic hyperplasia with lower urinary tract symptoms (principal); G92 Toxic encephalopathy; I21.4 Non-ST elevation (NSTEMI) myocardial infarction; N39.0 Urinary tract infection, site not specified; C90.01 Multiple myeloma in remission; I47.1 Supraventricular tachycardia; I47.2 Ventricular tachycardia; R33.8 Other retention of urine; I10 Essential (primary) hypertension; H40.9 Unspecified glaucoma; D69.6 Thrombocytopenia, unspecified; G45.4 Transient global amnesia; R35.1 Nocturia
CPT/HCPCS: 36415; 70450-TC; 71045-TC-FY; 76856-TC; 78452-TC; 80048; 80053; 80061; 80307; 81003; 82140; 82550; 82553; 82803; 82962; 83036; 83605; 83721; 83735; 84100; 84443; 84484; 85025; 85027; 86850; 86900; 86901; 87086; 93005; 93010; 93017; 93306-TC; 99285-25; A9502; J2785; U0003